=== PATIENT | male | born 1980 | race African-American/Black ===

== ENCOUNTER 2025-01-07 21:35 | Emergency (ER) | payer MEDICAID ==
[~2025-01-07] VITALS: Ht 198.1 cm; Wt 159.0 kg
[2025-01-07 21:58] VITALS: O2SAT 96
[2025-01-07] MEDS: HYDROCODONE/ACETAMINOPHEN 5/325MG TABLET PO ONE (23:56)
[2025-01-07] MEDS: KETOROLAC 30MG/ML VIAL IM ONE (23:56)
[2025-01-08] MEDS ORDERED: IBUP-2029 MT (00:34)
[2025-01-08 01:13] VITALS: BP 133/94; PULSE 98; RESP 22; TEMP 36.8; O2SAT 100
== END 2025-01-08 01:22 | disposition home or self-care (01) ==
LOC: ER 21:35
DX: S83.91XA Sprain of unspecified site of right knee, initial encounter (principal); I10 Essential (primary) hypertension; W19.XXXA Unspecified fall, initial encounter; Y93.89 Activity, other specified; Y92.89 Other specified places as the place of occurrence of the external cause; Y99.8 Other external cause status
CPT/HCPCS: 99283; 29505; 73562; 96372; J1885

== ENCOUNTER 2025-01-15 00:25 | Emergency (ER) | payer MEDICAID ==
[~2025-01-15] VITALS: Ht 198.1 cm; Wt 115.0 kg
[~2025-01-15 00:25] MED LIST: IBUP-2029 MT
[2025-01-15 00:28] VITALS: O2SAT 98
[2025-01-15 00:33] VITALS: BP 116/77; PULSE 124; RESP 18; TEMP 36.9; O2SAT 98
[2025-01-15] MEDS ORDERED: IBUP-2030 MT (00:38)
[2025-01-15] MEDS: IBUPROFEN 800MG TABLET PO ONE (01:02)
== END 2025-01-15 01:26 | disposition home or self-care (01) ==
LOC: ER 00:25
DX: S83.91XA Sprain of unspecified site of right knee, initial encounter (principal); Z76.0 Encounter for issue of repeat prescription; E11.9 Type 2 diabetes mellitus without complications; X58.XXXA Exposure to other specified factors, initial encounter; Y93.89 Activity, other specified; Y92.89 Other specified places as the place of occurrence of the external cause; Y99.8 Other external cause status
CPT/HCPCS: 99282